=== PATIENT | male | born 1945 | race Caucasian/White ===

== ENCOUNTER → 2019-01-05 | Outpatient (CLI) | payer MEDICARE ==
[~2019-01-05] MED LIST: LEVO50TA PO; MEGE400O2 PO; OMNIPAQUE 350 MG/ML, 100ML BOTTLE ONE; PANT40TA5 PO
== END | disposition home or self-care (01) ==
LOC: RAD 13:34
PROVIDERS: ATTEND Physician Assistant Medical
DX: K75.0 Abscess of liver (principal); D73.3 Abscess of spleen; J90 Pleural effusion, not elsewhere classified; K65.1 Peritoneal abscess; J98.11 Atelectasis; K44.9 Diaphragmatic hernia without obstruction or gangrene; K76.0 Fatty (change of) liver, not elsewhere classified; R59.0 Localized enlarged lymph nodes; N32.89 Other specified disorders of bladder; R60.0 Localized edema; N40.0 Benign prostatic hyperplasia without lower urinary tract symptoms; K40.90 Unilateral inguinal hernia, without obstruction or gangrene, not specified as recurrent
CPT/HCPCS: 74177; Q9967